=== PATIENT | female | born 1995 | race Caucasian/White ===

== ENCOUNTER 2017-02-23 09:12 | Emergency (ER) | payer BC, OTHER ==
[2017-02-23] MEDS ORDERED: MAG HYDROX/AL HYDROX/SIMETH 30 ML, HYOSCYAMINE ELIXIR 10 ML, CIMETIDINE HCL 300 MG, LID... PO STA ×4 (09:47)
--- NOTE | 2017-02-23 09:50 | ED ---
General Adult HPI - General Chief complaint: ENT Stated complaint: vomiting, Time Seen by Provider: 02/23/17 09:37 Source: patient, RN notes reviewed Mode of arrival: ambulatory Limitations: no limitations - History of Present Illness Initial comments: Patient is a 21-year-old female who presents emergency room today with a chief complaint of possible small foreign body that occurred 2 days ago. Does admit that she was drinking from a water bottle that had a small chip in it. She believes that she swallowed the plastic. She states she's feeling well until yesterday she had some increased reflux and vomited once and believes that it may have come back up. She does admit to some irritation to the lower right side of her throat. Patient states she's been able to eat and drink since with no difficulty's. Denies any other complaints or associated symptoms. Patient denies any recent fever, chills, shortness of breath, chest pain, back pain, abdominal pain, numbness or tingling, dysuria or hematuria, constipation or diarrhea, headaches or visual changes, or any other complaints. - Related Data Home Medications Medication Instructions Recorded Confirmed Escitalopram Oxalate [Lexapro] 10 mg PO DAILY 02/23/17 02/23/17 busPIRone HCl [Buspar] 10 mg PO DAILY 02/23/17 02/23/17 Previous Rx's Medication Instructions Recorded Ondansetron Odt [Zofran ODT] 4 mg PO Q8HR PRN #20 tab 02/23/17 Allergies Allergy/AdvReac Type Severity Reaction Status Date / Time No Known Drug Allergies AdvReac Unknown Verified 02/23/17 09:55 Review of Systems ROS Statement: Those systems with pertinent positive or pertinent negative responses have been documented in the HPI. ROS Other: All systems not noted in ROS Statement are negative. Past Medical History Past Medical History: No Reported History History of Any Multi-Drug Resistant Organisms: None Reported Additional Past Surgical History / Comment(s): sinus Past Psychological History: No Psychological Hx Reported Smoking Status: Never smoker Past Alcohol Use History: None Reported Past Drug Use History: None Reported General Exam - General Exam Comments Initial Comments: General: The patient is awake and alert, in no distress, and does not appear acutely ill. Eye: Pupils are equal, round and reactive to light, extra-ocular movements are intact. No nystagmus. There is normal conjunctiva bilaterally. No signs of icterus. Ears, nose, mouth and throat: There are moist mucous membranes and no oral lesions. Tonsils 1+ bilaterally no sign of exudate. Swallows without difficult. Uvula midline. Neck: The neck is supple, there is no tenderness or JVD. Cardiovascular: There is a regular rate and rhythm. No murmur, rub or gallop is appreciated. Respiratory: Lungs are clear to auscultation, respirations are non-labored, breath sounds are equal. No wheezes, stridor, rales, or rhonchi. Musculoskeletal: Normal ROM, no tenderness. Strength 5/5. Sensation intact. Pulses equal bilaterally 2+. Neurological: A&O x 3. CN II-XII intact, There are no obvious motor or sensory deficits. Coordination appears grossly intact. Speech is normal. Skin: Skin is warm and dry and no rashes or lesions are noted. Psychiatric: Cooperative, appropriate mood & affect, normal judgment. Limitations: no limitations Course Vital Signs 02/23/17 09:15 Temperature 98.5 F Pulse Rate 88 Respiratory 20 Rate Blood Pressure 108/71 O2 Sat by Pulse 98 Oximetry Medical Decision Making - Medical Decision Making Patient reexamined at this time shows no signs of distress. She was given GI cocktail here in the emergency room which has improved her symptoms. She does admit to feeling somewhat nauseous. Patient will be given nausea medication to go to use as needed. She is advised follow-up with ENT specialist if symptoms have not resolved in 2 days. At this time she is able to eat and drink without any difficulties. Advised return here to the emergency room if any symptoms increase or worsen. Patient and family member at bedside state understanding and are in agreement. Disposition Clinical Impression: Sensation of foreign body in esophagus Disposition: HOME SELF-CARE Condition: Good Instructions: Esophageal Foreign Body (ED) Additional Instructions: Please follow-up with ENT over the next 2 days of symptoms have not resolved. Please use nausea medication as needed for symptoms. Please increase oral fluids. Please return to emergency room if any symptoms increase or worsen or for any other concerns. Prescriptions: Ondansetron Odt [Zofran ODT] 4 mg PO Q8HR PRN #20 tab PRN Reason: Nausea Referrals: Odessa Leiva MD [Primary Care Provider] - 1-2 days Deon Frank MD [STAFF PHYSICIAN] - 1-2 days Time of Disposition: 10:07
[2017-02-23 10:25] VITALS: BP 112/54; PULSE 76; RESP 14; TEMP 99
== END 2017-02-23 10:29 | disposition home or self-care (01) ==
LOC: EC 09:12
DX: R09.89 Other specified symptoms and signs involving the circulatory and respiratory systems (principal); R11.0 Nausea; Z79.899 Other long term (current) drug therapy
CPT/HCPCS: 99283

== ENCOUNTER 2017-09-28 18:32 | Inpatient (IN) | payer OTHER ==
[2017-09-28] MEDS ORDERED: VANCOMYCIN IV PER PHARMACY 1 EACH MISC MISCELLANE PRN (18:53)
[2017-09-28] MEDS ORDERED: VANCOMYCIN 1,500 MG in SODIUM CHLORIDE 0.9% 250 ML IVPB STA (18:57)
[2017-09-28] MEDS ORDERED: HYDROcodone/APAP 5-325MG 1 EACH TAB PO PRN (19:03)
[2017-09-28] MEDS ORDERED: NALOXONE 0.4 MG/ML 1 ML VIAL IV PRN (19:03)
--- NOTE | 2017-09-28 19:03 | ED ---
Skin/Abscess/FB HPI - General Chief complaint: Skin/Abscess/Foreign Body Stated complaint: rt leg swelling Time Seen by Provider: 09/28/17 18:46 Source: patient, family Mode of arrival: ambulatory Limitations: no limitations - History of Present Illness Initial comments: 22-year-old female presents emergency Department with chief complaint of right leg infection. Patient states she was seen here approx 24 hours ago and given IV dose antibiotics has taken multiple oral doses in symptoms or worsen. She denies any fevers or chills. She does complain of mild right leg pain. Patient states this initially started after getting poked in the foot which she was to leave this was from a stick. - Related Data Home Medications Medication Instructions Recorded Confirmed Escitalopram Oxalate [Lexapro] 15 mg PO DAILY 02/23/17 09/27/17 busPIRone HCl [Buspar] 10 mg PO BID 02/23/17 09/27/17 Previous Rx's Medication Instructions Recorded Cephalexin [Keflex] 500 mg PO Q6HR #28 cap 09/27/17 Sulfamethox-Tmp 800-160Mg [Bactrim 2 each PO Q12HR #28 tab 09/27/17 Ds] Allergies Allergy/AdvReac Type Severity Reaction Status Date / Time adhesive tape Allergy Rash/Hives Verified 09/28/17 18:48 milk AdvReac HEARTBURN Verified 09/28/17 18:48 No Known Drug Allergies AdvReac Unknown Verified 09/28/17 18:48 Review of Systems ROS Statement: Those systems with pertinent positive or pertinent negative responses have been documented in the HPI. ROS Other: All systems not noted in ROS Statement are negative. Past Medical History Past Medical History: No Reported History History of Any Multi-Drug Resistant Organisms: None Reported Additional Past Surgical History / Comment(s): sinus Past Psychological History: Anxiety, Depression Smoking Status: Never smoker Past Alcohol Use History: None Reported Past Drug Use History: None Reported General Exam Limitations: no limitations General appearance: alert, in no apparent distress Head exam: Present: atraumatic, normocephalic, normal inspection Respiratory exam: Present: normal lung sounds bilaterally. Absent: respiratory distress, wheezes, rales, rhonchi, stridor Cardiovascular Exam: Present: regular rate, normal rhythm, normal heart sounds. Absent: systolic murmur, diastolic murmur, rubs, gallop, clicks Extremities exam: Present: other (Right with there is an open sore noted the first MTP region, large area of erythema extending over the dorsal aspect of the foot with streaking to her right groin area is tender with palpation) Course Vital Signs 09/28/17 18:48 Temperature 97.8 F Pulse Rate 93 Respiratory 16 Rate Blood Pressure 134/70 O2 Sat by Pulse 99 Oximetry Medical Decision Making - Medical Decision Making 22-year-old female presented for recheck right leg cellulitis. Patient has failed outpatient treatment. Patient will be admitted on IV antibiotics. Disposition Clinical Impression: Cellulitis of right leg, Lymphangitis, Failure of outpatient treatment Disposition: ADMITTED IP TO THIS HOSP Condition: Fair Referrals: Odessa Leiva MD [Primary Care Provider] - 1-2 days
[2017-09-28] MEDS: SODIUM CHLORIDE 0.9% 1,000 ML IV SCH (19:16)
[2017-09-28 19:22] LABS: Basophils % (A) 0 %; CH 30.8; CHCM 33.3; Eosinophils # (A) 0.3 k/uL (0-0.7); Eosinophils % (A) 2 %; HCT 43.1 % (34.0-46.0); HDW 2.43; Luc # (Auto) 0.22; Luc % (Auto) 2; Lymphocytes # (A) 2.2 k/uL (1.0-4.8); Lymphocytes % (A) 18 %; MCH 30.1 pg (25.0-35.0); MCHC 32.4 g/dL (31.0-37.0); MCV 92.8 fL (80.0-100.0); Mean Platelet Volume 6.9; Monocytes # (A) 0.9 k/uL (0-1.0); Monocytes % (A) 7 %; Neutrophils % (A) 71 %; RBC 4.64 m/uL (3.80-5.40); WBC 12.6 k/uL (4.0-11.0); WBC (Perox) 12.73
[2017-09-28 19:35] LABS: Anion Gap 13 mmol/L; Blood Urea Nitrogen 11 mg/dL (7-17); C Reactive Protein 68.4 mg/L (<10.0); Calcium 9.2 mg/dL (8.4-10.2); Carbon Dioxide 21 mmol/L (22-30); Chloride 106 mmol/L (98-107); Glucose 101 mg/dL (74-99); Non-African American GFR(MDRD) >60 (>60 ml/min/1.73 sqM); Potassium 4.2 mmol/L (3.5-5.1); Sodium 140 mmol/L (137-145)
[2017-09-29] MEDS: SODIUM CHLORIDE 0.9% 1,000 ML IV SCH (05:47)
[2017-09-29] MEDS: VANCOMYCIN 1,500 MG in SODIUM CHLORIDE 0.9% 250 ML IVPB SCH ×2 (05:48→18:20)
[2017-09-29] MEDS: ACETAMINOPHEN TAB 325 MG TAB PO PRN ×2 (11:28→18:12)
[2017-09-29 12:55] VITALS: RESP 20
--- NOTE | 2017-09-29 15:36 | P.HPIM ---
History of Present Illness 22-year-old female presents emergency Department with chief complaint of right leg infection. patient has the lightest of the right leg patient was seen in ER and patient was wearing high heels which led to a pressure ulcer on the medial aspect of the first metatarsal bone which led to cellulitis and patient was given prescription for Bactrim and Keflex which are appropriate patient's symptom worsened after one day of using these medications came back to the ER and patient was subsequently admitted with IV vancomycin patient has significant improvement competitors today patient denied any fever chills nausea vomiting abdominal pain. Review of Systems REVIEW OF SYSTEMS: CONSTITUTIONAL: No fever, no malaise, no fatigue. HEENT: No recent visual problems or hearing problems. Denied any sore throat. CARDIOVASCULAR: No chest pain, orthopnea, PND, no palpitations, no syncope. PULMONARY: No shortness of breath, no cough, no hemoptysis. GASTROINTESTINAL: No diarrhea, no nausea, no vomiting, no abdominal pain. Normoactive bowel sounds. NEUROLOGICAL: No headaches, no weakness, no numbness. HEMATOLOGICAL: Denies any bleeding or petechiae. GENITOURINARY: Denies any burning micturition, frequency, or urgency. MUSCULOSKELETAL/RHEUMATOLOGICAL: Denies any joint pain, swelling, or any muscle pain. ENDOCRINE: Denies any polyuria or polydipsia. The rest of the 14-point review of systems is negative. Past Medical History Past Medical History: No Reported History Additional Past Medical History / Comment(s): Autism- cognitive impairment. History of Any Multi-Drug Resistant Organisms: None Reported Date of last positivie culture/infection: 2011 MDRO Source:: sinus Additional Past Surgical History / Comment(s): sinus Past Anesthesia/Blood Transfusion Reactions: Postoperative Nausea & Vomiting ( PONV) Past Psychological History: Anxiety, Depression Smoking Status: Never smoker Past Alcohol Use History: None Reported Past Drug Use History: None Reported - Past Family History Mother Family Medical History: GERD/Reflux Medications and Allergies Home Medications Medication Instructions Recorded Confirmed Type Escitalopram Oxalate [Lexapro] 15 mg PO DAILY 02/23/17 09/28/17 History busPIRone HCl [Buspar] 10 mg PO BID 02/23/17 09/28/17 History Cephalexin [Keflex] 500 mg PO Q6HR #28 cap 09/27/17 09/28/17 Rx Sulfamethox-Tmp 800-160Mg [Bactrim 2 tab PO Q12HR 09/28/17 09/28/17 History Ds] Allergies Allergy/AdvReac Type Severity Reaction Status Date / Time adhesive tape Allergy Rash/Hives Verified 09/28/17 19:02 milk AdvReac HEARTBURN Verified 09/28/17 19:02 Physical Exam Vitals: Vital Signs Temp Pulse Pulse Pulse Resp BP BP 09/29/17 12:30 99.1 F 89 20 113/63 09/29/17 08:15 98.4 F 92 18 121/75 09/28/17 23:00 98.7 F 90 16 110/60 09/28/17 19:56 99.0 F 100 16 131/80 09/28/17 19:18 98 18 129/78 09/28/17 18:48 97.8 F 93 16 134/70 Pulse Ox 09/29/17 12:30 95 09/29/17 08:15 95 09/28/17 23:00 98 09/28/17 19:56 99 09/28/17 19:18 99 09/28/17 18:48 99 Intake and Output 09/29/17 09/29/17 09/29/17 06:59 14:59 22:59 Intake Total 580 200 Balance 580 200 Intake: Oral 580 200 Other: # Voids 1 1 PHYSICAL EXAMINATION: GENERAL: The patient is alert and oriented x3, not in any acute distress. Well developed, well nourished. HEENT: Pupils are round and equally reacting to light. EOMI. No scleral icterus. No conjunctival pallor. Normocephalic, atraumatic. No pharyngeal erythema. No thyromegaly. CARDIOVASCULAR: S1 and S2 present. No murmurs, rubs, or gallops. PULMONARY: Chest is clear to auscultation, no wheezing or crackles. ABDOMEN: Soft, nontender, nondistended, normoactive bowel sounds. No palpable organomegaly. MUSCULOSKELETAL: No joint swelling or deformity. EXTREMITIES: No cyanosis, clubbing, or pedal edema. NEUROLOGICAL: Gross neurological examination did not reveal any focal deficits. SKIN: Right with there is an open sore noted the firstmetatarsal region, large area of erythema extending over the dorsal aspect of the foot with streaking to her right groin area is tender with palpation, patient cellulitis appears to have improved from the markings that were drawn. Results CBC & Chem 7: 09/28/17 19:05 09/28/17 19:05 Labs: Abnormal Lab Results - Last 24 Hours (Table) 09/28/17 09/28/17 Range/Units 19:05 19:05 WBC 12.6 H (4.0-11.0) k/uL Neutrophils # 9.0 H (1.3-7.7) k/uL Carbon Dioxide 21 L (22-30) mmol/L Glucose 101 H (74-99) mg/dL C-Reactive Protein 68.4 H (<10.0) mg/L Thrombosis Risk Factor Assmnt - Choose All That Apply Any of the Below Risk Factors Present?: Yes Each Factor Represents 1 point: Obesity (BMI >25), Swollen legs (current) Other Risk Factors: No Other congenital or acquired thrombophilia - If yes, enter type in comment: No Thrombosis Risk Factor Assessment Total Risk Factor Score: 2 Thrombosis Risk Factor Assessment Level: Low Risk Assessment and Plan Plan: #cellulitisof the right lower eczema T from the pressure ulcer, improved symptoms with IV vancomycin, I believe patient did not receive an of antibiotic therapy before her symptoms worsened. Patient will then IV vancomycin here will be discharged on same Bactrim and Keflex to treat streptococci and supper crackles. #2 leukocytosis due to assessment #1 #3 autism and cognitive impairment: For which patient will be continued on her home medications.
[2017-09-29] MEDS: busPIRone HCl 10 MG TAB PO SCH (17:41)
[2017-09-30] MEDS: SODIUM CHLORIDE 0.9% 1,000 ML IV SCH (02:25)
[2017-09-30] MEDS: VANCOMYCIN 1,500 MG in SODIUM CHLORIDE 0.9% 250 ML IVPB SCH (06:12)
[2017-09-30 07:12] LABS: Anion Gap 9 mmol/L; Blood Urea Nitrogen 8 mg/dL (7-17); Calcium 8.6 mg/dL (8.4-10.2); Carbon Dioxide 24 mmol/L (22-30); Chloride 109 mmol/L (98-107); Glucose 90 mg/dL (74-99); Non-African American GFR(MDRD) >60 (>60 ml/min/1.73 sqM); Potassium 4.3 mmol/L (3.5-5.1); Sodium 142 mmol/L (137-145)
[2017-09-30] MEDS: busPIRone HCl 10 MG TAB PO SCH (08:35)
[2017-09-30] MEDS ORDERED: ESCITALOPRAM 5 MG TAB PO SCH (09:00)
[2017-09-30] MEDS: ACETAMINOPHEN TAB 325 MG TAB PO PRN (09:04)
[2017-09-30 12:23] VITALS: BP 126/73; PULSE 72; TEMP 98.2
--- NOTE | 2017-09-30 14:46 | P.DS ---
Providers Date of admission: 09/28/17 19:03 Attending physician: Jg Zabala Primary care physician: Odessa Rustchristi [facility] Course: Patient was admitted for cellulitis of the right leg and patient has significant improvement with IV vancomycin patient will be discharged on Keflex and Bactrim which she already has a prescription for. PHYSICAL EXAMINATION: GENERAL: The patient is alert and oriented x3, not in any acute distress. Well developed, well nourished. HEENT: Pupils are round and equally reacting to light. EOMI. No scleral icterus. No conjunctival pallor. Normocephalic, atraumatic. No pharyngeal erythema. No thyromegaly. CARDIOVASCULAR: S1 and S2 present. No murmurs, rubs, or gallops. PULMONARY: Chest is clear to auscultation, no wheezing or crackles. ABDOMEN: Soft, nontender, nondistended, normoactive bowel sounds. No palpable organomegaly. MUSCULOSKELETAL: No joint swelling or deformity. EXTREMITIES: No cyanosis, clubbing, or pedal edema. NEUROLOGICAL: Gross neurological examination did not reveal any focal deficits. SKIN:Right with there is an open sore noted the firstmetatarsal region, large area of erythema extending over the dorsal aspect of the foot with streaking to her right groin area is tender with palpation, patient cellulitis appears to have improved from the markings that were drawn. Significant improvement is alert is even compared to yesterday. #cellulitisof the right lower extremity from the pressure ulcer, improved symptoms with IV vancomycin, #2 leukocytosis due to assessment #1 #3 autism and cognitive impairment: For which patient will be continued on her home medications. Patient Condition at Discharge: Fair Plan - Discharge Summary Discharge Rx Participant: No New Discharge Prescriptions: No Action busPIRone HCl [Buspar] 10 mg PO BID Escitalopram Oxalate [Lexapro] 15 mg PO DAILY Cephalexin [Keflex] 500 mg PO Q6HR #28 cap Sulfamethox-Tmp 800-160Mg [Bactrim Ds] 2 tab PO Q12HR Discharge Medication List Escitalopram Oxalate [Lexapro] 15 mg PO DAILY 02/23/17 [History] busPIRone HCl [Buspar] 10 mg PO BID 02/23/17 [History] Cephalexin [Keflex] 500 mg PO Q6HR #28 cap 09/27/17 [Rx] Sulfamethox-Tmp 800-160Mg [Bactrim Ds] 2 tab PO Q12HR 09/28/17 [History] Follow up Appointment(s)/Referral(s): Odessa Leiva MD [Primary Care Provider] - 3 Days Activity/Diet/Wound Care/Special Instructions: CONTINUE ORAL ANTIBIOTICS PRESCRIBED UNTIL FINISHED. ENCOURAGE YOGURT. FOLLOW UP 3 DAYS, SOONER IF PROBLEMS OR CONCERNS IE..FEVER, CHILLS, WORSENING REDNESS OR SWELLING TO AFFECTED LEG. CALL FOR ANY PROBLEMS OR CONCERNS. SHOWER DAILY AND KEEP WOUND OPEN TO AIR. Discharge Disposition: HOME SELF-CARE
[2017-09-30] MEDS ORDERED: VANCOMYCIN TROUGH DUE 1 EACH MISC MISCELLANE ONE (17:00)
== END 2017-09-30 12:51 | disposition home or self-care (01) | DRG 603 ==
LOC: EC 18:32 → 6PED 19:03
PROVIDERS: ADMIT Hospitalist; ATTEND Hospitalist
DX: L03.115 Cellulitis of right lower limb (principal); L89.899 Pressure ulcer of other site, unspecified stage; F32.9 Major depressive disorder, single episode, unspecified; F84.0 Autistic disorder; F41.9 Anxiety disorder, unspecified; G31.84 Mild cognitive impairment of uncertain or unknown etiology; L30.9 Dermatitis, unspecified; Z79.899 Other long term (current) drug therapy; Z91.011 Allergy to milk products; Z91.048 Other nonmedicinal substance allergy status
CPT/HCPCS: 36415; 80048; 85025; 86140; 87040; 96365; 99284

== ENCOUNTER → 2021-10-29 | Outpatient (CLI) | payer OTHER ==
--- NOTE | 2021-10-30 05:58 | MR ---
EXAMINATION TYPE: MR knee RT wo con DATE OF EXAM: 10/29/2021 COMPARISON: None HISTORY: Right knee pain, painful kneecap, locking, and swelling for 6 months Multiplanar multiecho imaging of the right knee without contrast. The anterior and posterior cruciate ligaments are intact. The medial and lateral menisci appear intac t. There is small joint effusion. Patella is intact. Medial and lateral joint spaces are fairly connie l. The collateral ligaments appear intact. The collateral ligaments appear intact. There is no evidence of a soft tissue mass. I see no bony leonardo tructive process. IMPRESSION: No evidence of ligamentous or meniscal tear. Small knee joint effusion. No fracture. Mild subcutaneous edema noted anterior to the patella tendon.
== END | disposition home or self-care (01) ==
LOC: RADMRIMAIN 19:27
PROVIDERS: ATTEND Orthopaedic Surgery
DX: M25.461 Effusion, right knee (principal)

== ENCOUNTER → 2022-08-03 | Outpatient (CLI) | payer OTHER ==
--- NOTE | 2022-08-04 21:19 | US ---
EXAMINATION TYPE: US pelvis complete transvag DATE OF EXAM: 08/04/2022 COMPARISON: NONE CLINICAL HISTORY: Z97.5 Presence of (intrauterine)R10.2 Pelvic Pain. IUD placed this year. Pain last month. TECHNIQUE: Transvaginal (TV) and Transabdominal (TA) . Transabdominal sonographic images of the pel vis were acquired. Transvaginal sonographic images were medically necessary to better assess the fol lowing anatomy: Endometrium Date of LMP: 07/19/2022 EXAM MEASUREMENTS: Uterus: 8.0 x 6.5 x 3.0 cm Endometrial Stripe: Right horn= 0.6 cm Left horn= 0.5 cm Right Ovary: 2.3 x 2.3 x 1.4 cm Left Ovary: 2.5 x 2.3 x 1.4 cm Limited transvaginal exam due to patient body habitus 1. Uterus: Anteverted Probable bicornuate uterus. 2. Endometrium: wnl 3. Right Ovary: wnl 4. Left Ovary: wnl, only seen transabdominally 5. Bilateral Adnexa: wnl 6. Posterior cul-de-sac: no free fluid Cervix- IUD and fluid visualized within cervical canal IMPRESSION: 1. Patient may have a bicornuate uterus. Lower portion of the IUD is extending into the cervical claire l.
== END | disposition home or self-care (01) ==
LOC: RADUSWWP 15:41
PROVIDERS: ATTEND Obstetrics & Gynecology
DX: R10.2 Pelvic and perineal pain (principal); Z97.5 Presence of (intrauterine) contraceptive device
CPT/HCPCS: 76830; 76856

== ENCOUNTER → 2024-03-06 | Outpatient (CLI) | payer OTHER ==
--- NOTE | 2024-03-06 14:27 | MR ---
EXAMINATION TYPE: MR brain wo con DATE OF EXAM: 03/06/2024 12:20 PM COMPARISON: NONE HISTORY: Tremors. Multiplanar and multispin-echo imaging of the brain was performed . The ventricles, basal cisterns and sulci overlying the cerebral convexities are within normal limits. There is no evidence for midline shift or mass effect. Acute intracranial hemorrhage or extra-axial collection is not evident. The brain parenchyma reveals no abnormal increased signal. No acute edema is identified. The paranasal sinuses and mastoid air cells are well-aerated. IMPRESSION: Unremarkable MRI of the brain.
== END | disposition home or self-care (01) ==
LOC: RADMRIMAIN 11:33
PROVIDERS: ATTEND Psychiatry & Neurology Neurology
DX: R25.1 Tremor, unspecified (principal)
CPT/HCPCS: 70551

== ENCOUNTER → 2024-03-28 | Outpatient (CLI) | payer OTHER ==
[2024-03-28 15:59] VITALS: BP 103/71; PULSE 92; RESP 16; TEMP 98.2
--- NOTE | 2024-03-28 16:19 | P.SLEEP ---
History of Present Illness DATE: 03/28/2024 CONSULTATION/NEW PATIENT EVALUATION HISTORY OF PRESENT ILLNESS/SLEEP-WAKE EVALUATION: 29-year-old lady had been ev aluated in the sleep center for possible obstructive sleep apnea hypopnea syndrome. SLEEP SCHEDULE: Usually sleep schedule from 1011 PM up to 11 AM. FALLING ASLEEP: No problems with falling asleep. DURING SLEEP: Patient snores and wakes up from sleep several times with up to 2 episodes of nocturia. Positive history of grinding teeth. No history of hypnogogical hallucinations, sleep paralysis, or cataplexy. DURING THE DAY/WAKE STATE: In the morning patient wake up tired, falling asleep during the day. [place] sleepiness scale is increased to 10. Patient takes naps afternoon. Positive history of vivid dreams during naps. PAST MEDICAL HISTORY: Developmental disability, nonverbal learning disability, anxiety, depression, sinuses problems, acid reflux, headaches sometimes in the morning after awakenings, hypothyroidism. PAST SURGICAL HISTORY: Sinus surgery. MEDICATIONS: Please see below. SOCIAL HISTORY: Please see below. FAMILY HISTORY: Hypertension, thyroid problems. REVIEW OF SYSTEMS: Snoring, awakenings from sleep, sleepiness during the day. No fevers. No double vision. No recent chest pain. No shortness of breath. No abdominal pain. No bleeding episodes. No blood in urine. No seizure episodes. PHYSICAL EXAMINATION: GENERAL: A pleasant patient without any distress. VITAL SIGNS: Please see below, weight 252 pounds, body mass index 46.5. HEENT: PERRLA, EOMI. Evaluation of oropharynx showed tongue protrudes midline, low position of soft palate Mallampati 4. NECK: Supple. No JVD. Thyroid is not palpable. 18 inches in circumference. LUNGS: Clear to percussion and to auscultation. Good air exchange. No wheezing or rhonchi. HEART: S1, S2 regular. No murmurs, gallops or rubs. ABDOMEN: Soft and nontender. Bowel sounds are present. No organomegaly mariah reciated. EXTREMITIES: No clubbing or cyanosis. OPTICAL DISPENSER: Awake, alert, and oriented x3. Cranial nerves 2 to 7 intact. There is no fasciculation or atrophy noted. No focal deficits observed. ASSESSMENT: 1. Snoring, multiple awakenings from sleep, extremely low position of soft palate Mallampati 4, wide neck 18 inches in circumference, sleepiness [place] Sleepiness Scale is 10. Obstructive sleep apnea hypopnea syndrome. 2. Obesity, BMI 46.5. 3. Developmental disability and nonverbal disability history. 4. Headaches. 5 history of anxiety. 6 . History of depression. 7. Hypothyroidism. 8. Tremor. 9 . History of sinuses problems, status post surgical treatment. PLAN: 1. Polysomnography for evaluation of patient's breathing during sleep. 2. Following plan after reading sleep study. 3. Preferable position during sleep on the side. 4. No driving if patient feels any sleepiness. Patient is aware of civil and criminal liability for unsafe driving. 5. Sleep hygiene with regular sleep time for at least 7.5-8 hours. 6. Watching and losing weight. Thank you very much for referring this patient for consultation. Sincerely, Aaron Taylor MD, PhD, FAASM. Diplomat of [place] [employer], Sleep Medicine Board by [place] [employer] [employer] [facility] [place] Past Medical History Past Medical History: No Reported History, Thyroid Disorder Additional Past Medical History / Comment(s): Autism- cognitive impairment. Headaches, developmental isability - non verbal learning disability, depression, anxiety History of Any Multi-Drug Resistant Organisms: None Reported Date of last positivie culture/infection: 2011 MDRO Source:: sinus Additional Past Surgical History / Comment(s): sinus Past Anesthesia/Blood Transfusion Reactions: Postoperative Nausea & Vomiting (PONV) Past Psychological History: Anxiety, Depression Additional Psychological History / Comment(s): autism, developmental disability - non verbal learning disability Smoking Status: Never smoker Past Alcohol Use History: None Reported Past Drug Use History: None Reported - Past Family History Mother Family Medical History: GERD/Reflux Medications and Allergies Home Medications Medication Instructions Recorded Confirmed Type Escitalopram Oxalate [Lexapro] 20 mg PO DAILY 02/23/17 03/28/24 History busPIRone HCl [Buspar] 10 mg PO BID 02/23/17 03/28/24 History Cephalexin [Keflex] 500 mg PO Q6HR #28 cap 09/27/17 09/28/17 Rx Sulfamethox-Tmp 800-160Mg [Bactrim 2 tab PO Q12HR 09/28/17 09/28/17 History Ds] ARIPiprazole [Abilify] 10 mg PO DAILY 03/28/24 03/28/24 History Calcium Carbonate [Calcium] 600 mg PO 03/28/24 History Levothyroxine Sodium 137 mcg PO 03/28/24 History Loratadine [Claritin] 10 mg PO 03/28/24 History Propranolol HCl [Inderal] 60 mg PO 03/28/24 History Semaglutide [Wegovy] 1.7 mg SQ 03/28/24 History Semaglutide [Wegovy] 1.7 mg SQ 03/28/24 History Allergies Allergy/AdvReac Type Severity Reaction Status Date / Time adhesive tape Allergy Rash/Hives Verified 09/28/17 19:02 milk AdvReac HEARTBURN Verified 09/28/17 19:02 Physical Exam Vitals: Vital Signs Temp Pulse Resp BP Pulse Ox 03/28/24 15:30 98.2 F 92 16 103/71 95 Intake and Output 03/28/24 03/28/24 03/28/24 06:59 14:59 22:59 Other: Weight 114.305 kg Sleep Note - Sleep Data ESS Total: 10 - Sleep Note Sleep Note: Temperature: 98.2 F Pulse Rate: 92 Respiratory Rate: 16 Blood Pressure: 103/71 SpO2: 95 Height: 5 ft 1.75 in Weight: 114.305 kg BMI: Neck Circumference: 18
== END ==
LOC: 3 N SLEEP 14:38
PROVIDERS: ATTEND Internal Medicine
DX: G47.33 Obstructive sleep apnea (adult) (pediatric) (principal); E66.9 Obesity, unspecified; R51.9 Headache, unspecified; E03.9 Hypothyroidism, unspecified; R25.1 Tremor, unspecified; F79 Unspecified intellectual disabilities; G47.10 Hypersomnia, unspecified; F41.9 Anxiety disorder, unspecified; F32.A Depression, unspecified; Z87.09 Personal history of other diseases of the respiratory system; Z98.890 Other specified postprocedural states; Z68.42 Body mass index [BMI] 45.0-49.9, adult; Z91.011 Allergy to milk products; Z91.048 Other nonmedicinal substance allergy status; Z79.890 Hormone replacement therapy; Z79.899 Other long term (current) drug therapy
CPT/HCPCS: 99211

== ENCOUNTER 2024-04-29 19:28 | Outpatient (CLI) | payer OTHER ==
--- NOTE | 2024-05-01 13:51 | P.PCN ---
Description of Procedure: POLYSOMNOGRAPHY REPORT PROCEDURE(S)/DATE(S): Polysomnography 04/29/2024 CLINICAL: Patient has been seen in the sleep center for evaluation of obstructive sleep apnea-hypopnea syndrome. Please see my consultation. Sleep study has been done for evaluation of patient breathing during the sleep. PROCEDURE: The standard montage for clinical polysomnography included the electroencephalogram, the electrooculogram, the mentalis surface electromyography and Lead II cardiography. The respiratory battery consisted of measurements of nasal/buccal air flow, pressure transducer measurements from nose, thoracic and/or abdominal effort and intercostal surface electromyography. Video monitoring has been done to check for any parasomnia events. Nocturnal oxyhemoglobin saturations were obtained by finger oximetry. Step-gauthier titration with positive airway pressure was utilized to control the respiratory events, if necessary. RESULTS: During the diagnostic sleep study sleep efficiency was slightly decreased to 81.9%. Latency to sleep onset was significantly prolonged to 43.5 min. Sleep architecture showed stage NI was significantly increased to 24.2%, Delta sleep was absent 0%, REM sleep was close to normal 19.0%. Respiratory channel showed 0 obstructive apneas, 0 mixed apneas, 0 central apneas, 50 hypopneas with lowest oxygen level 86%. Total apnea hypopnea index was 9.9. Heart rate was in the range between 79 and 38, average 83. EMG showed 0 periodic limb movements per hour with 0 micro-arousals per hour. IMPRESSIONS: 1. Obstructive sleep apnea hypopnea syndrome With symptoms of excessive daytime sleepiness. 2. No significant periodic limb movements have been documented. 3. History of nonverbal learning disability Please see other impressions from consultation PLAN: 1. The patient will have PAP titration for correction of respiratory abnormalities during the sleep. 2. Losing weight program. 3. Sleep hygiene with regular time in bed for at least 7-1/2 hours. 4. No driving if feeling sleepiness. Thank you very much for allowing me to participate in the management of your patient. Sincerely, Aaron Taylor MD, PhD, FAASM. Diplomat of [place] [employer], Sleep Medicine Board by [employer] [facility] [place]
== END 2024-04-30 06:16 | disposition home or self-care (01) ==
LOC: 3 N SLEEP 19:28
PROVIDERS: ATTEND Internal Medicine
DX: G47.33 Obstructive sleep apnea (adult) (pediatric) (principal); Z86.59 Personal history of other mental and behavioral disorders; Z91.048 Other nonmedicinal substance allergy status; Z91.011 Allergy to milk products
CPT/HCPCS: 95810

== ENCOUNTER 2024-06-25 19:35 | Outpatient (CLI) | payer OTHER ==
--- NOTE | 2024-07-19 15:57 | SLS ---
SLEEP STUDY PROCEDURE: CPAP titration. CLINICAL: Titration with positive air pressure has been done for correction of respiratory abnormalities during sleep. DESCRIPTION OF PROCEDURE: The standard montage for clinical polysomnography included direct encephalogram, with electrooculogram, mentalis surface electromyography, and lead II cardiography. Respiratory battery consisted of measurement of airflow, thoracic and abdominal efforts. Video monitoring has been done to check for any parasomnia events. Nocturnal oxyhemoglobin saturations were obtained by finger oximetry. Stepwise titration has been done with CPAP for correction of respiratory abnormalities during sleep. RESULTS: During titration, sleep efficiency was decreased to 77.7%. Latency to sleep onset was significantly prolonged to 54.0 minutes. Sleep architecture showed increasing stage N1 to 10.4%, absence of delta sleep 0%, and significant decreasing of REM sleep to 7.2%. Heart rate in the range between 78 and 87, average 82 by computer calculation. EMG did not show any significant periodic limb movements. CPAP titration done up to the pressure of 12 cm of water. The best results were reached at the pressure 12, apnea-hypopnea index reduced to 0. The patient was at that pressure for 105.5 minutes with lowest oxygen level 90%. IMPRESSION: 1. Obstructive sleep apnea-hypopnea syndrome, on control with CPAP treatment. 2. No significant periodic limb movements have been documented during titration. Please see other impressions from consultation. PLAN: 1. The patient will be started on treatment with AutoPAP with range of the pressure 7- 13 cm of water and should use equipment every night for the whole night. 2. I will see patient for followup visit to evaluate clinical response on treatment, compliance with treatment, and make any necessary adjustments related to mask fitting, pressure, and humidification. 3. Losing weight program. 4. No driving if feeling sleepiness. Thank you very much for allowing me to participate in the management of your patient. Sincerely, Aaron Taylor MD, PhD, FAASM Diplomat of [place] [employer] Sleep Medicine Board of [place] [employer] [facility] [place] SHIRLEY / ADRIANA: [id number] / [email or web address]
== END 2024-06-26 06:20 | disposition home or self-care (01) ==
LOC: 3 N SLEEP 19:35
PROVIDERS: ATTEND Internal Medicine
DX: G47.33 Obstructive sleep apnea (adult) (pediatric) (principal); Z91.048 Other nonmedicinal substance allergy status; Z91.011 Allergy to milk products
CPT/HCPCS: 95811

== ENCOUNTER → 2024-11-06 | Outpatient (CLI) | payer OTHER ==
--- NOTE | 2024-11-06 12:32 | P.PROGSL ---
Subjective DATE: [] FOLLOW UP VISIT. Patient with obstructive sleep apnea hypopnea syndrome return to sleep center for follow-up visit. Recently patient had sleep study which documented obstructive sleep apnea hypopnea syndrome. Patient was initiated on PAP therapy and today is first visit after treatment was started. Patient was not able to use PAP equipment every night for the whole night. Patient has difficulties to breathe through the nose and has to use fullface mask. I checked information from PAP unit. PAP unit pressure 7-13, average 9.6 cm H2O. Usage is 27% and only 1% for more then 4 hours, average 1.5 hours per night. Leak is 9.8 l/m, which is in acceptable range. Apnea Hypopnea Index is 1.8, which is normal. MEDICATIONS: Please see below During physical exam: GENERAL: A pleasant patient without any distress. VITAL please see below, weight 274 pounds. HEENT: PERRLA, EOMI.low position of soft palate, Mallapati 4, significant restriction of nasal breathing. NECK: Supple. No JVD. LUNGS: Clear to percussion and to auscultation. Good air exchange. No wheezing or rhonchi. HEART: S1, S2 regular. ABDOMEN: Soft and nontender. Obese EXTREMITIES: No clubbing or cyanosis. 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 No focal deficit. Impressions: 1. Obstructive sleep apnea-hypopnea syndrome. Presently patient is not compli ant with CPAP treatment, but promised to use equipment every night for the whole night. Normal respiration while using CPAP. 2. Significant restriction of nasal breathing. 3. Obesity. 4. History of sinuses problems, status post surgical treatment. 5. Developmental disability and nonverbal disability history. 6. History of headaches. 7. History of anxiety. 8. History of depression. 9. Hypothyroidism. Plan: 1. Continue using PAP equipment every night for the whole night. We will extend trial period with CPAP for another 90 days. 2. To change air filter at least 1-2 times per month. 3. PAP unit should stay lower then position of the head. 4. Advised patient to remove all remaining water from humidifier canister daily and make it dry after each usage. Refill canister with fresh distilled water before each usage. 5. Sleep hygiene with regular time in bed for at least 8 hours[address] Patient [address] not drive. 7. Evaluation by ear nose and throat physician for nasal breathing problems. Patient will try to use nasal strips. 8. Follow up visit in 2 months or earlier if patient has any problems. 9. Watching and losing weight. Thank you very much for allowing me to participate in the management of your patient. Aaron Taylor MD, PhD, FAASM. Diplomat of [place] [employer], Sleep Medicine Board by [place] [employer] [facility] [place] cc: Marleen Griffin MD Objective Home Medications: Home Medications Medication Instructions Recorded Confirmed Type Escitalopram Oxalate [Lexapro] 20 mg PO DAILY 02/23/17 03/28/24 History busPIRone HCl [Buspar] 10 mg PO BID 02/23/17 03/28/24 History Cephalexin [Keflex] 500 mg PO Q6HR #28 cap 09/27/17 09/28/17 Rx Sulfamethox-Tmp 800-160Mg [Bactrim 2 tab PO Q12HR 09/28/17 09/28/17 History Ds] ARIPiprazole [Abilify] 10 mg PO DAILY 03/28/24 03/28/24 History Calcium Carbonate [Calcium] 600 mg PO 03/28/24 History Levothyroxine Sodium 137 mcg PO 03/28/24 History Loratadine [Claritin] 10 mg PO 03/28/24 History Propranolol HCl [Inderal] 60 mg PO 03/28/24 History Semaglutide [Wegovy] 1.7 mg SQ 03/28/24 History Semaglutide [Wegovy] 1.7 mg SQ 03/28/24 History
== END ==
LOC: 3 N SLEEP 11:29
PROVIDERS: ATTEND Internal Medicine
DX: G47.33 Obstructive sleep apnea (adult) (pediatric) (principal); E66.9 Obesity, unspecified; Z98.890 Other specified postprocedural states; E03.9 Hypothyroidism, unspecified; Z86.59 Personal history of other mental and behavioral disorders; Z99.89 Dependence on other enabling machines and devices; Z91.011 Allergy to milk products; Z91.048 Other nonmedicinal substance allergy status
CPT/HCPCS: 99212

== ENCOUNTER → 2025-04-08 | Outpatient (CLI) | payer OTHER ==
--- NOTE | 2025-04-09 07:16 | XR ---
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 FINDINGS: No evidence of acute osseous pathology, joint dislocation, or soft tissue swelling. The rem aining portions of the visualized chest are unremarkable. The remaining portions of the visualized c hest are unremarkable. Degeneration changes of the shoulder with osteophyte formation of the glenoid, humeral head acromion and clavicle. Linear foreign body in the medial left arm. IMPRESSION: 1. Linear foreign body in the medial left arm. 2. No acute osseous pathology. [facility], , 04/09/2025 7:14 AM
== END | disposition home or self-care (01) ==
LOC: RADXRMAIN 14:35
PROVIDERS: ATTEND Physician Assistant
DX: T85.628A Displacement of other specified internal prosthetic devices, implants and grafts, initial encounter (principal); S40.852A Superficial foreign body of left upper arm, initial encounter